=== PATIENT | male | born 1990 | race African-American/Black ===

== ENCOUNTER 2024-11-12 06:23 | Emergency (ER) | payer OTHER ==
[~2024-11-12] VITALS: Ht 172.7 cm; Wt 79.5 kg
[2024-11-12] MEDS: IBUPROFEN 600MG TAB PO ONE (07:56)
[2024-11-12] MEDS ORDERED: IBUP-1022 PO (08:15)
[2024-11-12] MEDS ORDERED: METH-1164 PO (08:15)
[2024-11-12 09:42] VITALS: BP 150/69; TEMP 98.6; O2SAT 98
== END 2024-11-12 09:46 | disposition home or self-care (01) ==
LOC: EDBD 06:23 → M ED 06:23
DX: Z04.1 Encounter for examination and observation following transport accident (principal)

== ENCOUNTER 2025-07-22 08:21 | Emergency (ER) | payer OTHER ==
[~2025-07-22] VITALS: Ht 172.7 cm; Wt 79.5 kg
[~2025-07-22 08:21] MED LIST: IBUP600T42 PO; METH-1164 PO
[2025-07-22] MEDS ORDERED: AMIT10TA11 PO (08:42)
[2025-07-22] MEDS: IBUPROFEN 600 MG TAB PO ONE (10:50)
[2025-07-22 12:43] VITALS: BP 125/71; TEMP 97; O2SAT 98
== END 2025-07-22 12:45 | disposition home or self-care (01) ==
LOC: M ED 08:21
DX: M25.562 Pain in left knee (principal); Y93.02 Activity, running; Y99.1 Military activity; M25.462 Effusion, left knee